=== PATIENT | male | born 1985 | race Two or more races ===

== ENCOUNTER 2018-01-24 13:40 | Emergency (ER) | payer OTHER ==
[~2018-01-24] VITALS: Ht 177.8 cm; Wt 104.0 kg
[2018-01-24 13:50] VITALS: BP 101/62
== END 2018-01-24 14:37 | disposition home or self-care (01) ==
LOC: ED 14:08
DX: L03.115 Cellulitis of right lower limb (principal); L03.116 Cellulitis of left lower limb; Z72.9 Problem related to lifestyle, unspecified; F15.10 Other stimulant abuse, uncomplicated; F14.20 Cocaine dependence, uncomplicated; F10.10 Alcohol abuse, uncomplicated; Z59.0 Homelessness; F17.200 Nicotine dependence, unspecified, uncomplicated
CPT/HCPCS: 99283